=== PATIENT | female | born 1970 | race Caucasian/White ===

== ENCOUNTER 2017-07-28 10:32 | Day surgery (SDC) | payer BC, OTHER ==
[~2017-07-28] VITALS: Ht 167.6 cm; Wt 79.2 kg
[~2017-07-28 10:32] MED LIST: BUPIVACAINE/PF 0.5% ONE; [UNRECOGNIZED DRUG - OTHER] PO; [UNRECOGNIZED DRUG - OTHER] PO; [UNRECOGNIZED DRUG - OTHER] PO; [UNRECOGNIZED DRUG - OTHER] PO; [UNRECOGNIZED DRUG - OTHER] PO
[2017-07-28] MEDS ORDERED: FENTANYL PF 100 MCG/2ML ONE (11:22)
[2017-07-28] MEDS ORDERED: MIDAZOLAM 1 MG/ML, 2ML ONE (11:22)
[2017-07-28 11:36] VITALS: BP 138/93
[2017-07-28 12:16] LABS: HCG UR OBC PASS
[2017-07-28] MEDS ORDERED: LACTATED RINGERS 1,000 ML IV SCH (12:31)
[2017-07-28] MEDS ORDERED: DEXAMETHASONE 4 MG/ML, 5ML ONE (13:30)
[2017-07-28] MEDS ORDERED: PROPOFOL 10 MG/ML, 20ML ONE (13:30)
[2017-07-28] MEDS ORDERED: CEFAZOLIN 1,000 MG ONE (13:30)
[2017-07-28] MEDS ORDERED: ONDANSETRON 2MG/ML, 2ML ONE (13:30)
[2017-07-28] MEDS ORDERED: MEPERIDINE/PF 25MG/0.5ML IVPush PRN (15:00)
[2017-07-28] MEDS ORDERED: OXYcodone 5 MG/5 ML ORAL.SOL UDC PO PRN (15:00)
[2017-07-28] MEDS ORDERED: ACETAMINOPHEN 325 MG TABLET PO PRN (15:00)
[2017-07-28] MEDS ORDERED: PROMETHAZINE 25 MG/ML, 1ML IV PRN (15:00)
[2017-07-28] MEDS ORDERED: LABETALOL 5MG/ML, 20ML IV PRN (15:00)
[2017-07-28] MEDS ORDERED: ONDANSETRON 2MG/ML, 2ML IVPush PRN (15:00)
[2017-07-28] MEDS ORDERED: ALBUTEROL/IPRATROPIUM 2.5MG/0.5MG, 3 ML NPPB PRN (15:00)
[2017-07-28] MEDS ORDERED: HYDROmorphone 1 MG/ML, 1ML IV PRN (15:00)
[2017-07-28] MEDS ORDERED: MIDAZOLAM 1 MG/ML, 2ML IV PRN (15:00)
[2017-07-28] MEDS ORDERED: FENTANYL PF 100 MCG/2ML IV PRN (15:00)
[2017-07-28] MEDS ORDERED: hydrALAzine 20 MG/ML, 1ML IV PRN (15:00)
== END 2017-07-28 17:00 ==
LOC: OUT 10:32 → MERGE 12:30 → OUT 17:00
PROVIDERS: ATTEND Orthopaedic Surgery
DX: M20.11 Hallux valgus (acquired), right foot (principal); M77.41 Metatarsalgia, right foot; M24.574 Contracture, right foot; M20.41 Other hammer toe(s) (acquired), right foot; Z88.0 Allergy status to penicillin; Z87.39 Personal history of other diseases of the musculoskeletal system and connective tissue; Z98.890 Other specified postprocedural states
CPT/HCPCS: 28285; 28296; 28308; 73620; 76000; 81025; C1713; J0690; J1100; J2250; J2405; J2704; J3010; J3490; J7120